=== PATIENT | female | born 1970 | race Two or more races ===

== ENCOUNTER 2024-04-20 05:55 | Day surgery (SDC) | payer OTHER ==
[2024-04-14 08:24] LABS: HEMATOCRIT 42.1 % (36.0-45.00); HEMOGLOBIN 14.2 g/dL (12.0-15.00); MEAN CELL VOLUME 83.5 fL (80.00-100.00); MEAN CORPUSCULAR HEMOGLOBIN 28.2 pg (27.00-32.0); MEAN CORPUSCULAR HGB CONC 33.8 g/dl (32.0-36.0); PLATELET COUNT 272 K/uL (150-450); RED BLOOD COUNT 5.04 M/uL (4.00-6.00); RED CELL DISTRIBUTION WIDTH 14.9 % (11.5-14.5)
[2024-04-14 08:25] VITALS: BP 170/87
[2024-04-14 08:27] LABS: PH,URINE 7.5 (5.0-8.0); URINE APPEARANCE Clear; URINE BILIRRUBIN Negative (NEGATIVE); URINE BLOOD Negative; URINE COLOR Yellow; URINE GLUCOSE Negative (NEGATIVE); URINE KETONE Negative (NEGATIVE); URINE LEUKOCYTE Trace; URINE NITRATE Negative; URINE PROTEIN Negative (NEGATIVE); URINE UROBILINOGEN 0.2 E.U./dl
[2024-04-14 08:31] LABS: URINE BACTERIA 1106.4 uL (0.0-1933); URINE EPITHELIAL CELLS 16.7 uL (0.0-38.8); URINE WBC 12.1 uL (0.0-23.2)
[2024-04-14 08:36] LABS: URINE RBC 1.6 uL (0.0-20.8)
[2024-04-14 08:49] LABS: INR 0.98; PARTIAL THROMBOPLASTIN TIME 28.2 SECONDS (22.0-34.0); PROTHROMBIN TIME 10.7 SECONDS (9.0-11.5)
[2024-04-14 10:01] LABS: ALBUMIN 3.7 gm/dL (3.4-5.0); BILIRUBIN TOTAL 0.72 mg/dL (0.3-1.2); CALCIUM 9.5 mg/dL (8.5-10.1); CREATININE SERUM 0.61 mg/dL (0.55-1.02); GFR 102.6; GLOBULINA 3.4 G/DL (2.4-3.5); POTASSIUM 4.38 mEq/L (3.5-5.1); TOTAL PROTEIN 7.1 gm/dL (6.4-8.2)
[~2024-04-20] VITALS: Ht 152.4 cm; Wt 124.7 kg
[~2024-04-20 05:55] MED LIST: COZAAR50 MG PO; LIPITOR20 MG PO; NORVASC5 MG PO
[2024-04-20] MEDS ORDERED: CIPROFLOXACIN IN 5 % DEXTROSE 400 MG/200 ML PIGGYBAG IV ONE (08:45)
[2024-04-20] MEDS ORDERED: CEFAZOLIN SODIUM 1,000 MG VIAL ONE (09:31)
[2024-04-20] MEDS ORDERED: POVIDONE-IODINE 118 ML BOTT TOP ONE (09:31)
[2024-04-20] MEDS ORDERED: CHLORHEXIDINE GLUCONATE 120 ML BOTTLE TOP ONE (09:33)
[2024-04-20] MEDS ORDERED: DOXYCYCLINE HY100 M2 PO (12:17)
[2024-04-20] MEDS ORDERED: TRAM1TAB98 PO (12:18)
== END 2024-04-20 15:50 | disposition home or self-care (01) ==
LOC: CIR.AMB 05:55
PROVIDERS: ATTEND Obstetrics & Gynecology
DX: D25.0 Submucous leiomyoma of uterus (principal); N84.0 Polyp of corpus uteri; N95.0 Postmenopausal bleeding; Z88.4 Allergy status to anesthetic agent; Z88.0 Allergy status to penicillin